=== PATIENT | female | born 1950 | race Caucasian/White ===

== ENCOUNTER 2023-03-22 09:47 | Outpatient (CLI) | payer MEDICARE, SELFPAY | END 2023-03-22 09:48 | disposition home or self-care (01) | PROVIDERS: PCP Physician Assistant Medical; Visit Provider Physician Assistant Medical | DX: I10 Essential (primary) hypertension (principal); F32.A Depression, unspecified; I42.1 Obstructive hypertrophic cardiomyopathy; I35.0 Nonrheumatic aortic (valve) stenosis; F41.9 Anxiety disorder, unspecified; R41.89 Other symptoms and signs involving cognitive functions and awareness | CPT/HCPCS: 80053; 80061; 84443 ==

== ENCOUNTER 2023-07-20 16:03 | Emergency (ER) | payer MEDICARE, SELFPAY ==
[2023-07-20] VITALS (35 sets, daily range): BP systolic 111–156; BP diastolic 66–95; PULSE 75–88; RESP 16; TEMP 36.1–36.7; O2SAT 91–100; BMI 25.7
--- NOTE | 2023-07-20 17:05 | ED_ITS ---
HPI - General Adult General Time Seen by Provider: 17:05 Date Seen: 07/20/23 Chief complaint: Unspecified Complaint, Adult Stated complaint: Low hemoglobin Time Seen by Provider: 07/20/23 16:44 Source: patient, RN notes reviewed and other (TCU records) Mode of arrival: EMS Limitations: no limitations History of Present Illness HPI narrative: 73-year-old female who presents today with low hemoglobin. No recent prior records in our system, was transferred down from TCU in [place] due to low hemoglobin. Patient reports she was started on dialysis 2 or 3 weeks ago, found to have low hemoglobin today. She has no complaints, denies chest pain, shortness of breath, black stools. I did review recent admissions and labs from [facility], patient was admitted [facility] 06-08 for acute renal failure, hyponatremia, hyperkalemia. Notes from TCU today indicate that patient is to skip dialysis 07/19 and 07/21. Labs done this morning show hemoglobin 6.4, review prior all patient records shows this is been down trending for the last couple of weeks and is being evaluated as an outpatient. Related Data Home Medications Medication Instructions Recorded Confirmed acetaminophen 650 mg 1,300 mg PO BID 08/15/22 05/24/23 tablet,extended release escitalopram oxalate 20 mg tablet 20 mg PO DAILY 08/15/22 05/24/23 aspirin 81 mg chewable tablet 81 mg PO QDAY 05/24/23 05/24/23 nitroglycerin 0.4 mg sublingual 0.4 mg sublingual ONCE 05/24/23 05/24/23 tablet Previous Rx's Medication Instructions Recorded diltiazem HCl 120 mg capsule,24 120 mg PO QAM #90 caps 04/18/23 hr,extended release (Tiadylt ER) lisinopril 20 mg tablet 20 mg PO DAILY #90 tabs 04/18/23 tramadol 50 mg tablet 25 mg (1/2 x 50 mg) PO .2xweek PRN 05/09/23 pain #20 tabs isosorbide mononitrate 30 mg 30 mg PO DAILY #90 tabs 06/19/23 tablet,extended release 24 hr rosuvastatin 20 mg tablet 20 mg PO QPM #30 tabs 06/19/23 lidocaine 4 % topical patch 1 patch topical QDAY PRN pain #10 06/20/23 ea trazodone 50 mg tablet 25 mg (1/2 x 50 mg) PO QHS 06/20/23 insomnia #30 tabs Allergies Allergy/AdvReac Type Severity Reaction Status Date / Time Penicillins Allergy Unknown Hives Verified 05/24/23 10:46 [facility] Medical History (Updated 07/20/23 @ 18:00 by Benjamin Hollins MD) Traumatic brain injury ?S06.9X9A - Unspecified intracranial injury with loss of consciousness of unspecified duration, initial encounter (ICD-10) History of subdural hemorrhage ?Z86.79 - Personal history of other diseases of the circulatory system (ICD- 10) History of falling ?Z91.81 - History of falling (ICD-10) History of benzodiazepine use ?Z87.898 - Personal history of other specified conditions (ICD-10) History of alcoholism ?F10.21 - Alcohol dependence, in remission (ICD-10) Acute kidney injury ?N17.9 - Acute kidney failure, unspecified (ICD-10) Surgical History (Updated 08/13/22 @ 12:31 by Sammi Keyes) Status post total replacement of left hip ?Z96.642 - Presence of left artificial hip joint (ICD-10) History of thoracotomy ?Z98.890 - Other specified postprocedural states (ICD-10) History of aortic valve replacement ?Z95.2 - Presence of prosthetic heart valve (ICD-10) Family History (Updated 08/13/22 @ 12:35 by Sammi Keyes) Father Asthma Hearing loss Mother Cancer H/O cardiac disorder High blood pressure Social History Smoking Status: Never smoker Exam Narrative: Exam Narrative: General: Well-developed and well-nourished, no acute distress, appears chronically ill Head: Atraumatic and normocephalic Eyes: Pupils are equal reactive, extraocular motions intact, conjunctiva clear ENT: External nose and ears are normal, posterior pharynx without erythema or exudate Neck: No midline cervical tenderness, full spontaneous range of motion the neck, trachea midline, no adenopathy. Dialysis port in the right upper chest with some old bruising, no bleeding. Heart: Regular rate and rhythm 4/6 systolic murmur Lungs: Clear to auscultation bilaterally without wheezes or crackles Abdomen: Soft, nontender, nondistended with active bowel sounds Musculoskeletal: No tenderness, deformity, or edema Neurologic: Awake, alert, and oriented x3, no gross focal neurologic deficits, cranial nerves intact as tested Psych: Mood and affect are appropriate Skin: No rashes Const: Vital Signs, click to edit/add: Vital Signs - 24 hr 07/20/23 16:09 07/20/23 19:27 07/20/23 19:30 Temperature 97.4 F L Pulse Rate 85 84 Pulse Rate [Pulse Oximeter] 75 Respiratory Rate 16 Blood Pressure Blood Pressure [Ri ght Upper Arm] 111/68 Pulse Oximetry 95 100 99 Oxygen Delivery Me thod Room Air 07/20/23 19:45 07/20/23 19:47 07/20/23 19:49 Temperature Pulse Rate 85 87 88 Pulse Rate [Pulse Oximeter] Respiratory Rate 16 Blood Pressure 120/66 121/66 Blood Pressure [Ri ght Upper Arm] Pulse Oximetry 100 100 99 Oxygen Delivery Me thod 07/20/23 19:50 07/20/23 20:00 07/20/23 20:01 Temperature Pulse Rate 86 86 85 Pulse Rate [Pulse Oximeter] Respiratory Rate Blood Pressure 122/73 Blood Pressure [Ri ght Upper Arm] Pulse Oximetry 98 99 99 Oxygen Delivery Me thod 07/20/23 20:06 07/20/23 20:07 07/20/23 20:15 Temperature 97.0 F L 97.1 F L Pulse Rate 86 86 83 Pulse Rate [Pulse Oximeter] Respiratory Rate 16 16 Blood Pressure 122/73 130/66 Blood Pressure [Ri ght Upper Arm] Pulse Oximetry 100 100 98 Oxygen Delivery Me thod 07/20/23 20:16 07/20/23 20:30 07/20/23 20:31 Temperature Pulse Rate 82 82 83 Pulse Rate [Pulse Oximeter] Respiratory Rate Blood Pressure 132/79 130/77 Blood Pressure [Ri ght Upper Arm] Pulse Oximetry 99 100 100 Oxygen Delivery Me thod 07/20/23 20:45 07/20/23 20:46 07/20/23 21:00 Temperature Pulse Rate 84 82 85 Pulse Rate [Pulse Oximeter] Respiratory Rate Blood Pressure 135/78 Blood Pressure [Ri ght Upper Arm] Pulse Oximetry 100 99 95 Oxygen Delivery Me thod 07/20/23 21:01 Temperature Pulse Rate 82 Pulse Rate [Pulse Oximeter] Respiratory Rate Blood Pressure 146/85 H Blood Pressure [Ri ght Upper Arm] Pulse Oximetry 100 Oxygen Delivery Me thod Course Course Hospital Course: Patient seen examined, prior records are reviewed. Patient was transferred here today from TCU due to low hemoglobin. She was recently admitted at an outside facility, please see HPI for details. Hemoglobin reported today to be 6.4. No obvious source of bleeding. She does have some bruising of the upper chest and back from recent port placement but this does not appear new and there is no associated swelling to suggest hematoma. Lung sounds are clear, no evidence for hemo thorax but chest x-ray will be ordered. Patient denies any abdominal pain or black or tarry stools. Reevaluation(s) Time of Reevaluation #1: 17:57 Reevaluation #1: Labs independently interpreted by me with hemoglobin of 7, none the less with 2 recorded hemoglobins this week of less than 7, 1 unit of blood will be given. Otherwise, potassium is normal, creatinine slightly elevated at 2.5. Time of Reevaluation #2: 21:04 Reevaluation #2: Patient tolerating blood transfusion without difficulty or reaction. Anticipate discharge. Vital Signs Vital signs: Initial Vital Signs Temperature 97.4 F L 07/20/23 16:09 Temperature Source Temporal Artery Scan 07/20/23 16:09 Pulse Rate 75 07/20/23 16:09 Respiratory Rate 16 07/20/23 16:09 Blood Pressure 111/68 07/20/23 16:09 Blood Pressure Mean 82 07/20/23 16:09 Pulse Oximetry 95 07/20/23 16:09 Oxygen Delivery Method Room Air 07/20/23 16:09 Vital Signs Temperature 97.4 F L 07/20/23 16:09 Pulse Rate 75 07/20/23 16:09 Respiratory Rate 16 07/20/23 16:09 Blood Pressure 111/68 07/20/23 16:09 Pulse Oximetry 95 07/20/23 16:09 Oxygen Delivery Method Room Air 07/20/23 16:09 Temperature 97.1 F L 07/20/23 20:07 Pulse Rate 82 07/20/23 21:01 Respiratory Rate 16 07/20/23 20:07 Blood Pressure 146/85 H 07/20/23 21:01 Pulse Oximetry 100 07/20/23 21:01 Oxygen Delivery Method Room Air 07/20/23 16:09 Medical Decision Making Lab Data Labs: Lab Results 07/20/23 Range/Units 17:15 WBC 6.04 (4.50-11.00) K/uL RBC 2.02 L (4.00-5.20) m/uL Hgb 7.0 L* (12.0-16.0) gm/dL Hct 22.3 L (33.0-51.0) % MCV 110 H (80-100) fL MCH 35 H (26-34) pg MCHC 31 L (32-36) gm/dL RDW Coeff of [place] 12.4 (11.5-15.5) % Plt Count 288 (140-440) K/uL Neut % (Auto) 58.2 (42.0-72.0) % Lymph % (Auto) 30.0 (20-44) % [place] % (Auto) 8.6 (0.0-11.0) % Eos % (Auto) 2.8 (0.0-7.0) % Baso % (Auto) 0.2 (0.0-3.0) % Neut # (Auto) 3.52 (1.7-7.0) K/uL Lymph # (Auto) 1.81 (0.90-2.90) K/uL [place] # (Auto) 0.50 (0.00-0.90) K/UL Eos # (Auto) 0.17 (0.00-0.50) K/uL Baso # (Auto) 0.01 (0.00-0.30) K/uL Abs Immat Gran (auto) 0.01 (0.00-0.30) K/uL Imm/Tot Granulo (auto) 0.2 % INR 0.94 (0.91-1.10) Sodium 133 L (135-149) mmol/L Potassium 4.6 (3.6-5.1) mmol/L Chloride 102 (96-114) mmol/L Carbon Dioxide 24 (20-32) mmol/L Anion Gap 7 (7-15) mEq/L BUN 21 (7-30) mg/dL Creatinine 2.5 H (0.5-1.5) mg/dL Estimated Creat Clear 17.88 Estimated GFR 20 ml/min Glucose 90 (60-115) mg/dL Calcium 8.8 (8.4-10.6) mg/dL Magnesium 2.0 (1.5-2.6) mg/dL Blood Type A Positive Antibody Screen NEGATIVE Crossmatch (AHG) See Detail ECG Data Attestation: I personally reviewed and interpreted this ECG as follows: Prior ECG tracings: not available for review Interpretation: Performed at 4:36 p.m. demonstrates normal sinus rhythm rate 72, prolonged QT, no acute ST elevations or depressions, normal axis, QTC 494, WI 168. No prior for comparison. Critical Care Time Critical Care Time Critical Care Time: Yes (Hemoglobin 7, transfusion) Attestation: The patient required my highest level preparedness to intervene emergently and I personally spent this critical care time directly and personally managing the patient. This critical care time included: Obtaining a history; Examining the patient; Pulse oximetry; Ordering and reviewing of studies; Arranging urgent treatment with development of a management plan; Evaluation of patients response to treatment; Frequent reassessment discussions with other providers. This critical care time was performed to assess and manage the high probability of imminent life-threatening deterioration that could result in multiorgan failure. It was exclusive of separate billable procedures and treating other patients and teaching time. Total Critical Care Time in Minutes: 80 Discharge Plan Discharge Clinical Impression: Anemia, Acute renal failure on dialysis, Hypertension Patient Disposition: Home w/ Parent or Adult Condition: Improved Instructions: Anemia (ED) Additional Instructions: If further cares are needed, patient should be transferred to [facility] where she has recently been admitted and previously receive care. Patient cannot be admitted to [facility] while she is on dialysis. Activity Level: Activity as Tolerated Discharge Diet: Regular Prescriptions: No Action acetaminophen 650 mg tablet extended release 1,300 mg PO BID escitalopram oxalate 20 mg tablet 20 mg PO DAILY nitroglycerin 0.4 mg tablet, sublingual 0.4 mg sublingual ONCE Rx Instructions: as a single dose; administer 5-10 minutes before situation known to precipitate angina attack aspirin 81 mg tablet,chewable 81 mg PO QDAY diltiazem HCl [Tiadylt ER] 120 mg capsule,extended release 24 hr 120 mg PO QAM Qty: 90 1RF lisinopril 20 mg tablet 20 mg PO DAILY Qty: 90 1RF tramadol 50 mg tablet 25 mg PO .2xweek PRN (Reason: pain) Qty: 20 0RF rosuvastatin 20 mg tablet 20 mg PO QPM Qty: 30 0RF Rx Instructions: due for labs isosorbide mononitrate 30 mg tablet extended release 24 hr 30 mg PO DAILY Qty: 90 3RF lidocaine 4 % adhesive patch,medicated 1 patch topical QDAY PRN (Reason: pain) Qty: 10 3RF trazodone 50 mg tablet 25 mg PO QHS Qty: 30 0RF Follow Up/Referrals: Gera Potts PA-C [Primary Care Provider] - Stand Alone Forms: [facility] Info Instructions
[2023-07-20 17:22] LABS: Hematocrit 22.3 % (33.0-51.0); Mean Corpuscular HGB Conc 31 gm/dL (32-36); Mean Corpuscular Hemoglobin 35 pg (26-34); Mean Corpuscular Volume 110 fL (80-100); Platelet Count* 288 K/uL (140-440); RDW Coefficient of Variation % 12.4 % (11.5-15.5); Red Blood Count 2.02 m/uL (4.00-5.20); White Blood Count* 6.04 K/uL (4.50-11.00)
[2023-07-20 17:23] LABS: Basophils Absolute Auto 0.01 K/uL (0.00-0.30); Basophils Percent Auto 0.2 % (0.0-3.0); Eosinophils Absolute Auto 0.17 K/uL (0.00-0.50); Eosinophils Percent Auto 2.8 % (0.0-7.0); Immature Granulocytes Abs Auto 0.01 K/uL (0.00-0.30); Immature Granulocytes Pct Auto 0.2 %; Lymphocytes Absolute Auto 1.81 K/uL (0.90-2.90); Monocytes Percent Auto 8.6 % (0.0-11.0); Neutrophils Absolute Auto 3.52 K/uL (1.7-7.0); Neutrophils Percent Auto 58.2 % (42.0-72.0)
--- NOTE | 2023-07-20 17:24 | CRLHL7_ITS ---
For Patients: As a result of the Century Cures Act, medical imaging exams and procedure reports are released immediately into your electronic medical record. You may view this report before your referring provider. If you have questions, please contact your health care provider. INDICATION: Acute anemia. TECHNIQUE: Chest 1 view. COMPARISON: Chest radiograph 02/09/2023. FINDINGS: Interval placement of a right IJ CVC with tip near the cavoatrial junction. Increased eventration of the right hemidiaphragm compared to prior exam. Hazy airspace opacity in the right lung base may represent atelectasis or infiltrate. Minimal left basilar atelectasis. No pleural effusion or pneumothorax. Heart size and pulmonary vasculature are within normal limits. Sternotomy with cardiac valve prosthesis. Prominent right convex thoracic curve. IMPRESSION: 1. Increased eventration of the right hemidiaphragm. 2. Hazy airspace opacity in the right lung base may represent atelectasis or infiltrate. Dictated by Zulay Campos MD @ 07/20/2023 6:11:47 PM (Electronically Signed)
[2023-07-20 17:38] LABS: INR 0.94 (0.91-1.10); Prothrombin Time 13.1 Seconds
[2023-07-20 17:39] LABS: Slide Review Reflex No
[2023-07-20 17:40] LABS: Chloride* 102 mmol/L (96-114); Sodium* 133 mmol/L (135-149)
[2023-07-20 17:41] LABS: Potassium* 4.6 mmol/L (3.6-5.1)
[2023-07-20 17:43] LABS: Anion Gap 7 mEq/L (7-15); Carbon Dioxide* 24 mmol/L (20-32); Creatinine* 2.5 mg/dL (0.5-1.5); Est. Creatinine Clearance* 17.88; Estimated Glomerular Filt Rate 20 ml/min
[2023-07-20 17:44] LABS: Blood Urea Nitrogen* 21 mg/dL (7-30); Calcium* 8.8 mg/dL (8.4-10.6); Glucose* 90 mg/dL (60-115)
--- NOTE | 2023-07-20 18:20 | ED.NURSE ---
Patient signed consent for blood transfusion. Reviewed with patient with physician.
--- NOTE | 2023-07-20 20:51 | ED.NURSE ---
Attempted to call [facility]. No answer, kept ringing. Will attempt later again to give an update.
--- NOTE | 2023-07-20 21:47 | ED.NURSE ---
Nurse to nurse called to [place], nurse will watch for patient arrival.
[2023-07-20] MEDS: 0.9 % SODIUM CHLORIDE 250 ml IV (21:50)
[2023-07-20] MEDS: FUROSEMIDE 10 MG/ML inj 20 MG IVP (21:52)
== END 2023-07-20 23:11 | disposition home or self-care (01) ==
PROVIDERS: Emergency Provider Family Medicine; PCP Physician Assistant Medical
DX: D64.9 Anemia, unspecified (principal); N17.9 Acute kidney failure, unspecified; I10 Essential (primary) hypertension
CPT/HCPCS: 36415; 36430; 71045; 80048; 83735; 85025; 85610; 86850; 86900; 86901; 86922; 93005; 96374; 99285; 99291; J1940; J7050; P9016